=== PATIENT | male | born 1990 | race Caucasian/White ===

== ENCOUNTER 2016-05-29 20:18 | Emergency (ER) | END 2016-05-30 01:56 | disposition home or self-care (01) | DX: N45.2 Orchitis (principal); N43.3 Hydrocele, unspecified; N50.3 Cyst of epididymis; J45.909 Unspecified asthma, uncomplicated; F17.210 Nicotine dependence, cigarettes, uncomplicated; R11.10 Vomiting, unspecified | CPT/HCPCS: 76870; 80053; 81001; 83605; 83690; 85025; 87086; J1885; J2270; J2405; J2543; J7030 ==

== ENCOUNTER 2016-06-05 12:57 | Emergency (ER) | payer SELFPAY ==
[~2016-06-05] VITALS: Ht 177.8 cm; Wt 84.7 kg
[~2016-06-05 12:57] MED LIST: AMOX1TAB10 PO; BACTDS PO; HYDR-906 PO; IBUP-1542 PO; PHEN-538 PO
[2016-06-05 13:28] VITALS: Ht 177.8 cm; Wt 84.7 kg
--- NOTE | 2016-06-05 15:32 | RADRPT ---
PROCEDURE: US Scrotum. CLINICAL INDICATION: Pain TECHNIQUE: Multiple sonographic images of the scrotal region were obtained utilizing a linear arra y transducer with grayscale and color-flow and a Doppler imaging. The images were reviewed on a high -resolution PACS workstation. COMPARISON: 05/29/2016 FINDINGS: The right testicle is well visualized and has a normal echotexture. No focal areas of abnormal echog enicity are visualized. The right testicle measures measures 4.1 x 2.1 x 2.9 cm. There is normal col or-flow. The right epididymis is enlarged and hypervascular measuring 4.5 x 1.4 cm. There is associ ated soft tissue swelling and thickening of the skin. The left testicle is well visualized and has a normal echotexture. No focal areas abnormal echogenic ity are visualized. The left testicle measures measures 4.1 x 2.1 x 2.7 cm. There is normal color-fl ow. The left epididymis is visualized and is unremarkable in appearance. There is normal color-flow. RPTAT: AA IMPRESSION: Right-sided epididymitis. Bilateral epididymal cysts were not seen in the current study. .Zia Thomas MD, Date Time Electronically viewed and signed by .Zia Thomas MD, MD on 06/05/2016 15:32 .S/
[2016-06-05 15:34] LABS: URINE BLOOD (Dip) POC Negative (NEGATIVE)
[2016-06-05] MEDS ORDERED: IBUP-1542 PO (16:43)
[2016-06-05] MEDS ORDERED: CIPR500T4 PO (16:59)
[2016-06-05] MEDS ORDERED: CLOT30CR24 TOP (17:04)
--- NOTE | 2016-06-05 17:08 | ERD ---
ER Documentation Chief Complaint Date/Time DATE: 06/05/16 TIME: 17:05 Chief Complaint RIGHT TESTICULAR PAIN AND SWELLING HPI This is a 26 year old male presents to the ER for redness to the tip of his penis that started yesterday. Patient denies any pain now discharge. He does admit to continued right testicular pain and swelling. Patient is currently sexually active with female. He has had unprotected sexual intercourse. Patient denies any urinary frequency or dysuria. He denies any flank pain or fevers or chills. ROS 12 point review of systems was done, all negative except per HPI.. Medications Home Meds Active Scripts Clotrimazole* (Clotrimazole* AF) 1% - 30 Gm Cream.gm., 1 APPLIC TOP BID for 7 Days, TUB Prov:JUNI SKELTON 06/05/16 Ciprofloxacin Hcl* (Ciprofloxacin Hcl*) 500 Mg Tablet, 500 MG PO BID for 7 Days , TAB Prov:JUNI SKELTON 06/05/16 Ibuprofen* (Motrin*) 600 Mg Tab, 600 MG PO Q6, #30 TAB Prov:JUNI SKELTON 06/05/16 Amoxicillin/Potassium Clav (Amox-Clav 875-125 mg Tablet) 875-125 mg Tab, 1 TAB PO BID for 10 Days, #20 TAB Prov:GERBER CONDE NP 05/30/16 Sulfamethoxazole-Trimethoprim* (Bactrim* DS) 800-160 Mg Tab, 1 TAB PO BID for 10 Days, TAB Prov:GERBER CONDE NP 05/30/16 Phenazopyridine Hcl* (Pyridium*) 200 Mg Tab, 200 MG PO TID Y for URINARY PAIN, # 6 TAB Prov:GERBER CONDE NP 05/30/16 Hydrocodone/Acetaminophen ([place] 5-325 Tablet) 1 Each Tablet, 1 TAB PO Q6H Y for PAIN, #20 TAB Prov:GERBER CONDE NP 05/30/16 Ibuprofen* (Motrin*) 600 Mg Tab, 600 MG PO Q6H Y for PAIN AND OR ELEVATED TEMP, #30 TAB Prov:GERBER CONDE NP 05/30/16 Reported Medications [none] Unknown Strength No Conflict Check 05/29/16 Allergies Allergies: Coded Allergies: No Known Allergy (Unverified , 05/29/16) PMhx/Soc History of Surgery: No Anesthesia Reaction: No Hx Neurological Disorder: No Hx Respiratory Disorders: Yes (asthma) Hx Cardiac Disorders: No Hx Psychiatric Problems: No Hx Miscellaneous Medical Probl: 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 HEENT: Atraumatic. CHEST: Clear to auscultation bilaterally. There are no rales, wheezes or rhonchi. HEART: Regular rate and rhythm. No murmurs, clicks, rubs or gallops. ABDOMEN: Soft, nontender and nondistended. Good bowel sounds. No rebound or guarding. No gross peritonitis. No gross organomegaly or masses. No Raymundo sign or McBurney point tenderness. : there is slight redness to the tip of the penis, no discharge. mild right testicular swelling and pain NEURO: Alert and oriented. Results 24 hrs Laboratory Tests Test 06/05/16 15:36 Bedside Urine Blood Negative Bedside Urine Glucose (UA) Negative Bedside Urine Ketones (LAB) Negative Bedside Urine Leukocyte Esterase (L 1+ Bedside Urine Nitrite (LAB) Negative Bedside Urine Protein (LAB) Negative Bedside Urine pH (LAB) 5.5 Procedures/MDM This is a 26-year-old male presents to the ER with redness of the tip of his penis. This is likely yeast infection secondary to antibiotic use. She is still presented with slight testicular redness and swelling. On ultrasound patient did have epididymitis. I discussed this case and antibiotic choice with Dr. Delvalle. Patient received IV sews and has been taking Bactrim and Augmentin at home. Patient was told to discontinue Bactrim and Augmentin and Cipro will be started. Patient did have 1+ leukocytes on urine, last time he only had trace leukocytes. Urine was sent out for culture and urine was tested for STDs. She needs to follow-up with his primary care doctor within 1-2 days return to ER sooner symptoms worsen. My medical decision making was shared with the patient he understands and agrees with plan. Departure Diagnosis: Primary Impression: Acute epididymitis Patient Instructions: Epididymitis Additional Instructions: Call your primary care doctor TOMORROW for an appointment during the next 1-2 days.See the doctor sooner or return here if your condition worsens before your appointment time. JUNI SKELTON Jun 05, 2016 17:08
== END 2016-06-05 17:25 | disposition home or self-care (01) ==
LOC: FTE 12:57
DX: N45.1 Epididymitis (principal); F17.210 Nicotine dependence, cigarettes, uncomplicated; J45.909 Unspecified asthma, uncomplicated
CPT/HCPCS: 76870; 81003; 87086; 87591